=== PATIENT | female | born 1950 | race Caucasian/White ===

== ENCOUNTER 2020-04-12 11:58 | Inpatient (IN) | payer MEDICARE ==
[~2020-04-12] VITALS: Ht 175.3 cm; Wt 59.1 kg
--- NOTE | ~2020-04-12 | EC ---
PATIENT:HAWK QUIJANO DATE OF SERVICE: 04/12/20 SEX: F MEDICAL RECORD: [id number] DATE OF : [birth year] LOCATION:D[facility] AGE OF PATIENT: 70 ADMISSION DATE: 04/12/20 REFERRING PHYSICIAN: INTERPRETING PHYSICIAN: ALLIE PATRICK MD ECHOCARDIOGRAM REPORT ECHO CHARGES 4 ECHO COMPLETE Date: 04/13/20 CLINICAL DIAGNOSIS: CVA ECHOCARDIOGRAPHIC MEASUREMENTS (adult normal given) AC root (d.<3.7cm) 3.4 cm LV Septum d (<1.2 cm> 1.4 cm Valve Excursion 2.0 cm LV Septum (systole) 1.7 cm Left Atria (s.<4.0cm> 4.5 cm LVPW d(<1.2cm) 1.3 cm RV (d.<2.3cm) 2.3 cm LVPW (sytole) 1.7 cm LV diastole(<5.6CM) 3.7 cm MV E-F(>70mm/sec) cm LV systole 2.6 cm LVOT Diameter 2.0 cm MV exc.(>10mm) cm Est.ejection fraction (50-75%) % DOPPLER: LVIT cm/sec A 73.0 cm/sec E 48.0 cm/sec LA cm/sec RVSP 21.0 mmHg LVOT 82.0 cm/sec AOP1/2T m/s Asc. Ao 112 cm/sec RVOT 51.0 cm/sec RA cm/sec PA 76.0 cm/sec AV Gradient Peak 5.0 mmHg AV Mean 2.6 mmHg AV Area 2.3 cm MV Gradient Peak 3.2 mmHg MV Mean 1.1 mmHg MV Area cm COMMENTS: Customs House Broker: Sulema [employer] Curator: 4 Dr. Patrick TAPE# PACS Pericardial Effusion N DATE OF SERVICE: 04/14/2020 PROCEDURE: Transthoracic echocardiogram. FINDINGS: Left ventricle is normal size, normal function with mild LVH. Evidence of diastolic dysfunction. Left atrium is mildly dilated at 4.5 cm, but normal function. Aortic valve is normal. ECHOCARDIOGRAM REPORT [id number] HAWK QUIJANO The mitral valve appears to be functionally normal with trivial mitral regurgitation. Tricuspid valve has trace tricuspid valve regurgitation. The right ventricular systolic pressure is 21 mmHg. The right ventricle is normal size and function. Right atrium is normal size and function. PULMONIC VALVE: Not well visualized. There is trace pulmonic insufficiency. There is no obvious thrombus identified on this evaluation. TRANSINT:[id number] Voice Confirmation ID: [id number] DOCUMENT ID: [id number] ALLIE PATRICK MD CC: [id number] DICTATION DATE: 04/14/20 1837 SYSTEM VALIDATION ENGINEER: 04/15/20 0114 ADM IN [facility] [address] [id number]
[~2020-04-12 11:58] MED LIST: HYDROCODONE-APA1 TAB PO
--- NOTE | 2020-04-12 12:07 | NUR ---
PT REGISTERED PRIOR TO ARRIVING. STILL NOT HERE.
--- NOTE | 2020-04-12 12:25 | NUR ---
PT ACCURATE ARRIVAL TIME IN ED 1214. ARRIVES POV WITH FAMILY.
--- NOTE | 2020-04-12 12:40 | NUR ---
TO CT VIA STRETCHER WITH DESULFURIZER MACHINE
--- NOTE | 2020-04-12 12:40 | NUR ---
FSBS= 102 MG/DL
[2020-04-12 12:41] LABS: CALC OSMOLALITY 271 mosm/kg (275-300); CALCIUM 9.6 mg/dL (8.5-10.1); CARBON DIOXIDE 28.5 mmol/L (21.0-32.0); CHLORIDE - SERUM 102 mmol/L (98-107); CREATININE - SERUM 1.1 mg/dL (0.6-1.3); GLUCOSE 107 mg/dL (74-106); POTASSIUM - SERUM 4.2 mmol/L (3.5-5.1); SODIUM 136 mmol/L (136-145); UREA NITROGEN 13 mg/dL (7-18); eGFR NON AFRICAN AMERICAN 52 mL/min (90-120)
[2020-04-12 12:43] VITALS: BP 152/80
[2020-04-12 12:43] LABS: APTT 26.2 SECONDS (22.8-39.4)
[2020-04-12 12:48] LABS: INR 0.95 (0.85-1.17); PROTIME 12.6 SECONDS (11.6-15.0)
[2020-04-12 12:55] LABS: ALKALINE PHOSPHATASE 70 U/L (30-120); ALT (SGPT) 20 U/L (10-68); BILIRUBIN - TOTAL 0.54 mg/dL (0.2-1.3); CKMB 0.6 U/L (0.0-3.6); CREATINE KINASE 63 UL (21-215); MAGNESIUM - SERUM 2.2 mg/dL (1.8-2.4); PROTEIN - SERUM 7.9 g/dL (6.4-8.2); THYROID STIMULATING HORMONE 2.78 uIU/mL (0.36-3.74)
[2020-04-12 12:56] LABS: TROPONIN-I < 0.017 ng/mL (0.000-0.060)
[2020-04-12 13:32] VITALS: BP 152/84
[2020-04-12 13:44] LABS: BASOPHILS 0.2 % (0-2); HEMATOCRIT 41.1 % (36.0-48.0); HEMOGLOBIN 13.8 g/dL (12-16); IMMATURE GRANULOCYTES 0.2 % (0-5); MCH 28.7 pg (26.0-34.0); MCHC 33.6 g/dL (31.0-37.0); MCV 85.4 fL (80.0-100.0); MONOCYTES 7.6 % (2-11); PLATELET COUNT 192 10x3/uL (130-400); RBC 4.81 10x6/uL (4.00-5.40); RDW 12.9 % (11.5-14.5); WBC 5.2 10x3/uL (4.8-10.8)
--- NOTE | 2020-04-12 14:52 | NUR ---
PT AMB TO BR WITH SBA, NICK WELL, URINE SPEC COLLECTED, LABELED AT BS AND SENT TO LAB
[2020-04-12 15:00] VITALS: BP 184/71
[2020-04-12 15:19] LABS: BILIRUBIN NEGATIVE (NEGATIVE); GLUCOSE NEGATIVE (NEGATIVE); KETONE NEGATIVE (NEGATIVE); NITRITE NEGATIVE (NEGATIVE); UROBILINOGEN NORMAL (NORMAL)
[2020-04-12 15:20] LABS: RED CELLS - URINE 0-5 /hpf (0-5); WHITE CELLS - URINE 25-50 /hpf (NEGATIVE)
[2020-04-12 15:21] LABS: BACTERIA MANY /hpf (NEGATIVE); EPITHELIAL CELLS 0-5 /hpf (0-5)
[2020-04-12 16:00] VITALS: BP 159/79
--- NOTE | 2020-04-12 16:32 | NUR ---
REPORT TO BONG GRAY
--- NOTE | 2020-04-12 16:58 | NUR ---
TO MRI VIA WC WITH COVER MACHINE OPERATOR, CONDITION STABLE THEN TO BE TRANSPORTED TO ROOM #7819
--- NOTE | 2020-04-12 17:30 | NUR ---
TO ROOM 2219 FROM ER. ASSESSMENT PER FLOW SHEET. PATIENT IS NON VERBAL AND CANNOT WRITE WHAT SHE WANTS TO SAY. NET PROGRAMMER ANALYST ARE EQUAL. GAIT IS UNSTEADY, BUT CAN WALK WITH ASSIST. PUPILS ARE EQUAL AND REACTIVE.FALL PREVENTION IN PLACE WITH JES MAT. FAMILY AT BEDSIDE
[2020-04-12 18:01] VITALS: BP 175/74; Ht 175.3 cm; Wt 59.1 kg
--- NOTE | 2020-04-12 19:00 | NUR ---
BEDSIDE REPORT RECEIVED AND CARE OF PT ASSUMED. PT APHASIC WITH ONLY SPEAKING A COUPLE OF WORDS..OTHERWISE ALERT AND ORIENTED. IV TO RIGHT FA SALINE LOCKED.
--- NOTE | 2020-04-12 19:15 | NUR ---
PLACED TELEMETRY AND SCD'S PER ORDER. TELEMETRY READING SR AT 60 AT THIS TIME. GAVE IS AND INSTRUCTED ON USE. RETURN DEMONSTRATION TO 1999 DESPLAYED.
[2020-04-12 20:00] VITALS: BP 148/82
--- NOTE | 2020-04-12 20:12 | NUR ---
GAVE HS MEDICATIONS WITH THCKENED WATER. PT SWALLOWED WITHOUT DIFFICULTY. GAVE APPLESAUCE AND PUDDING FOR HS SNACK. IS AT BEDSIDE.
--- NOTE | 2020-04-12 23:40 | NUR ---
CALLED DR WHATLEY TO REPORT TEST RESULTS AND PT CURRENT ASSESSMENT.
[2020-04-13 04:00] VITALS: BP 126/75
--- NOTE | 2020-04-13 04:56 | NUR ---
PT REMAINS APHASIC WITH LEFT SIDE WEAKNESS. ABLE TO AMBULATE WITH ASSIST TO RESTROOM. IS AT BEDSIDE.
--- NOTE | 2020-04-13 05:16 | NUR ---
ASSISTED PT UP TO USE RESTROOM. AMBULATED WITH MINIMAL ASSISTANCE. POSITIONED BACK IN BED FOR COMFORT AND REPLACED SCD'S. WILL CONTINUE TO MONITOR FOR NEEDS. IS AT BEDSIDE.
[2020-04-13 05:35] LABS: BASOPHILS 0.2 % (0-2); EOSINOPHILS 1.7 % (0-7); HEMATOCRIT 39.7 % (36.0-48.0); HEMOGLOBIN 13.1 g/dL (12-16); IMMATURE GRANULOCYTES 0.2 % (0-5); MCH 28.5 pg (26.0-34.0); MCV 86.5 fL (80.0-100.0); MEAN PLATELET VOLUME 9.5 fL (7.4-10.4); MONOCYTES 8.5 % (2-11); NEUTROPHILS 60.4 % (40-80); PLATELET COUNT 183 10x3/uL (130-400); RBC 4.59 10x6/uL (4.00-5.40); WBC 4.8 10x3/uL (4.8-10.8)
[2020-04-13 05:52] LABS: ANION GAP 10.5 mmol/L (8-16); CALCIUM 9.1 mg/dL (8.5-10.1); CARBON DIOXIDE 28.8 mmol/L (21.0-32.0); CHOL - HDL RATIO 4.2 ratio (2.3-4.1); CREATININE - SERUM 0.9 mg/dL (0.6-1.3); LDL-HDL RATIO 2.8 ratio (1.5-3.5); POTASSIUM - SERUM 4.3 mmol/L (3.5-5.1)
[2020-04-13 08:41] VITALS: BP 137/84
--- NOTE | 2020-04-13 11:43 | NUR ---
I have reviewed this patient and I concur with the Shift Assessment completed by the Licensed Practical Nurse today this shift.
[2020-04-13 12:16] VITALS: BP 115/82
--- NOTE | 2020-04-13 14:01 | NUR ---
PT SITTING UP IN BED, SPOUSE AT BEDSIDE, PER SPOUSE PT ATE A LITTLE BIT OF LUNCH AND ABLE TO DRINK HER THICKENED FLUIDS, PT CONCERNED THAT SPOUSE IS NOT EATING, OFFERED SANDWICH TRAY CAFETERIA IS CLOSED, PT SON CALLED FOR UPDATE, GAVE MUCH INFORMATION I COULD, STATED STILL PENDING DR WHATLEY'S RECOMMENDATIONS ACCORDING TO PRIMARY PLAN OF CARE. NO OTHER NEEDS AT THIS TIME. CONTINUE WITH PLAN OF CARE
--- NOTE | 2020-04-13 15:20 | NUR ---
PT SPOUSE STATED HE NEEDED TO LEAVE TO GET SLEEP AND TORN BETWEEN LEAVING AND MISSING DOCTOR OR GETTING ADEQUATE SLEEP. ENCOURAGED PT SPOUSE TO GO GET REST AND EXPLAINED I WILL GET NUMBER AND HAVE DR CALL HIM IF HE ARRIVES AND PT SPOUSE IS NOT BACK. SPOUSE RELUCTANTLY AGREED. NO NEEDS VOICED FROM PT. CONTINUE WITH PLAN OF CARE
[2020-04-13 16:15] VITALS: BP 139/74
--- NOTE | 2020-04-13 19:00 | NUR ---
BEDSIDE REPORT RECEIVED AND CARE OF PT ASSUMED. PT LYING IN HIGH DEVRIES'S POSITION. IV TO RIGHT FA SALINE LOCKED. TELEMETRY IN PLACE AND READING SR AT THIS ASSESSMENT. WILL MONITOR FOR NEEDS.
[2020-04-13 20:00] VITALS: BP 130/69
--- NOTE | 2020-04-13 20:04 | NUR ---
HS MEDICATIONS GIVEN. WILL CONTINUE TO MONITOR FOR NEEDS.
[2020-04-14] VITALS: BP 113/68
[2020-04-14 04:00] VITALS: BP 113/74
[2020-04-14 05:44] LABS: ALBUMIN 3.6 g/dL (3.4-5.0); ANION GAP 12.1 mmol/L (8-16); BILIRUBIN - TOTAL 0.49 mg/dL (0.2-1.3); CALCIUM 9.2 mg/dL (8.5-10.1); CARBON DIOXIDE 27.7 mmol/L (21.0-32.0); POTASSIUM - SERUM 3.8 mmol/L (3.5-5.1); PROTEIN - SERUM 7.2 g/dL (6.4-8.2)
[2020-04-14 07:08] LABS: BASOPHILS 0.2 % (0-2); EOSINOPHILS 1.1 % (0-7); HEMATOCRIT 40.1 % (36.0-48.0); HEMOGLOBIN 13.4 g/dL (12-16); IMMATURE GRANULOCYTES 0.2 % (0-5); LYMPHOCYTES 23.1 % (15-50); MCH 28.8 pg (26.0-34.0); MCHC 33.4 g/dL (31.0-37.0); MCV 86.2 fL (80.0-100.0); MEAN PLATELET VOLUME 9.9 fL (7.4-10.4); MONOCYTES 8.7 % (2-11); NEUTROPHILS 66.7 % (40-80); PLATELET COUNT 184 10x3/uL (130-400); RBC 4.65 10x6/uL (4.00-5.40); RDW 13.1 % (11.5-14.5); WBC 6.5 10x3/uL (4.8-10.8)
[2020-04-14 08:10] VITALS: BP 123/71
--- NOTE | 2020-04-14 08:36 | NUR ---
PT IS SITTING UP IN BED EATING BREAKFAST WITH SPOUSE AT BEDSIDE. PT STATED SHE IS GOING HOME TODAY, EXPLAINED TO PATIENT WISHES OF DR WHATLEY AND REASONING. PT IS VERY STRONG WILLED AND STATED SHE WOULD RATHER DO THERAPY AT HOME. PT SPEECH IS MORE CLEAR. RIGHT SIDE IS A LOT STRONGER TODAY WELL. SPOKE TO PT DAUGHTER JAIME WHO WAS AN AID AT THE HOSPITAL AND VOICED MY CONCERNS. PT DAUGHTER STATED THAT THEY WERE ABLE TO TAKE CARE OF HER FATHER A FEW YEARS AGO AND THAT THEY WILL BE ABLE TO CARE FOR HER AT HOME AND ALSO MAKE SURE THAT SHE DOES AGGRESSIVE OP THERAPY. EXPRESSED PATIENTS WISHES AND CONCERNS WITH CASE MANAGEMENT AND TOLD CASE MANAGEMENT JESSICA WOODY THAT FAMILY WOULD LIKE TO SEE HER. NO OTHER NEEDS VOICED AT THIS TIME. CONTINUE WITH PLAN OF CARE
--- NOTE | 2020-04-14 12:16 | MORECARE ---
CASE MANAGEMENT DISCHARGE SUMMARY PATIENT: HAWK QUIJANO UNIT: [id number] ADM DATE: 04/12/20 AGE: 70 : 51 SEX: F ROOM/BED: D.2219 AUTHOR: KISHOR HARMAN PHYSICIAN: REFERRING PHYSICIAN: KAVEH MCCANN MD DATE OF SERVICE: 04/14/20 Discharge Plan Patient Name: HAWK QUIJANO [facility] [facility] 1950 Planned Disposition: Home or Self Care Anticipated Discharge Date: Discharge Date: Expected LOS: Initial Reviewer: [email or web address] Initial Review Date: 04/12/2020 Generated: 04/14/20 1:15 pm DCPIA - Discharge Planning Initial Assessment Updated by [email or web address]: Annie Dale on 04/14/20 12:14 pm * Is the patient Alert and Oriented? Yes * How many steps to enter\exit or inside your home? * PCP NONE ([facility] REFERRED THEM TO [facility]) * Pharmacy [facility] * Preadmission Environment Home with Family * ADLs Independent * Equipment None * List name and contact numbers for known caregivers / representatives who currently or will assist patient after discharge: MALI QUIJANO [phone] * Verbal permission to speak to the caregivers and representatives has been obtained from the patient. N/A * Community resources currently utilized None * Additional services required to return to the preadmission environment? Yes * Can the patient safely return to the preadmission environment? Yes * Has this patient been hospitalized within the prior 30 days at any hospital? No Patient Name: HAWK QUIJANO Page [id number] at 1216 All edits/amendments must be made on the electronic document DICTATION DATE: 04/14/20 1215 OIL AND GAS WELL TREATMENT OPERATOR: ANTONIO 04/14/20 1215 RPT#: [id number] DC DATE: STATUS: ADM IN [address] [place] [address] END OF REPORT
[2020-04-14 12:19] VITALS: BP 146/82
--- NOTE | 2020-04-14 12:23 | MORECARE ---
CASE MANAGEMENT DISCHARGE SUMMARY PATIENT: HAWK QUIJANO UNIT: [id number] ADM DATE: 04/12/20 AGE: 70 : 51 SEX: F ROOM/BED: D.2219 AUTHOR: GHAZALDOC PHYSICIAN: REFERRING PHYSICIAN: KAVEH MCCANN MD DATE OF SERVICE: 04/14/20 Discharge Plan Patient Name: HAWK QUIJANO Facility: [facility]:[place] : 1950 Planned Disposition: Home or Self Care Anticipated Discharge Date: Discharge Date: Expected LOS: Initial Reviewer: [email or web address] Initial Review Date: 04/12/2020 Generated: 04/14/20 1:22 pm Comments DCP- Discharge Planning Updated by [email or web address]: Annie Dale on 04/14/20 11:[address] Patient Name: HAWK QUIJANO Admission Status: ER Accout number: [id number] Admission Date: 04-12-2020 : 1950 Admission Diagnosis: Attending: KAVEH VOGT Current LOS: 2 Anticipated DC Date: Planned Disposition: Home or Self Care Primary Insurance: MEDICARE A & B Discharge Planning Comments: CM met with patient to complete initial dc planning assessment. CM educated patient on the CM role and verbal consent given by patient to complete assessment. Patient lives at home with her spouse where she was independent with her care. At discharge patient plans to return home and feels this is a safe discharge. CM discussed availability of home health, rehab services, and medical equipment. She does not think that she needs any DME. She is very tearful speaking with me about therapy. She would like to go home and do outpatient therapy, if that is possible. She will need Speech at least. IMM served and explained. Her said that he can bring her to and from and they would like to do it here @ [facility]. Patient denied known discharge needs at this time. CM will continue to follow and will assist as needed with dc plans/needs. Religious Ritual Slaughterer: Annie Dale DCPIA - Discharge Planning Initial Assessment Updated by [email or web address]: Annie Dale on 04/14/20 12:14 pm * Is the patient Alert and Oriented? Yes * How many steps to enter\exit or inside your home? * PCP NONE ([facility]) * Pharmacy [facility] * Preadmission Environment Home with Family * ADLs Independent * Equipment None * List name and contact numbers for known caregivers / representatives who currently or will assist patient after discharge: MALI QUIJANO [phone] * Verbal permission to speak to the caregivers and representatives has been obtained from the patient. N/A * Community resources currently utilized None * Additional services required to return to the preadmission environment? Yes * Can the patient safely return to the preadmission environment? Yes * Has this patient been hospitalized within the prior 30 days at any hospital? No Coverage Notice Reviewer: [id number] Blake Dale Notice Issued Date-Time: 04/14/2020 12:00 Notice Type: IM Discharge Notice Notice Delivered To: Patient Relationship to Patient: Breaker Up Machine Operator Name: Delivery Method: HAND - Hand Delivered Kathrine Days: Prior Verbal Notification: Recipient Understood Notice: Yes Recipient Signature: Yes Med Rec Note Co-signed by Attending: Coverage Notice Comment: imm served and explained Last DP export: 04/14/20 11:16 a Patient Name: HAWK QUIJANO Page [phone] at 1223 All edits/amendments must be made on the electronic document DICTATION DATE: 04/14/201221 VACCINE SPECIALIST: ANTONIO 04/14/201221 RPT#: [id number] DC DATE: STATUS: ADM IN [facility] [address] [place] [address] END OF REPORT
--- NOTE | 2020-04-14 15:05 | NUR ---
[facility] NO S/SX OF DISTRESS, PT IS EATING SONIC AND STATES SHE IS GOING TO HAVE A PEDICURE. NO OTHER NEEDS VOICED, CL IN REACH, CONTINUE WITH PLAN OF CARE
[2020-04-14 16:44] VITALS: BP 137/79
--- NOTE | 2020-04-14 16:56 | NUR ---
I have reviewed this patient and I concur with the Shift Assessment completed by the Licensed Practical Nurse today this shift.
--- NOTE | 2020-04-14 19:00 | NUR ---
BEDSIDE REPORT RECEIVED AND CARE OF PT ASSUMED. PT AMBULATING IN THE HALLWAY WITH DAUGHTER AT THIS TIME. WILL MONITOR FOR NEEDS.
[2020-04-14 20:00] VITALS: BP 106/71
--- NOTE | 2020-04-14 20:27 | NUR ---
HS MEDICATIONS GIVEN WITH THICKENED WATER. WILL CONTINUE TO MONITOR FOR NEEDS.
[2020-04-15] VITALS: BP 117/77
[2020-04-15 04:00] VITALS: BP 129/73
[2020-04-15 04:50] LABS: BASOPHILS 0.2 % (0-2); EOSINOPHILS 1.8 % (0-7); HEMATOCRIT 40.2 % (36.0-48.0); HEMOGLOBIN 13.2 g/dL (12-16); IMMATURE GRANULOCYTES 0.2 % (0-5); LYMPHOCYTES 28.8 % (15-50); MCH 28.4 pg (26.0-34.0); MCHC 32.8 g/dL (31.0-37.0); MCV 86.6 fL (80.0-100.0); MEAN PLATELET VOLUME 9.7 fL (7.4-10.4); MONOCYTES 6.5 % (2-11); NEUTROPHILS 62.5 % (40-80); PLATELET COUNT 188 10x3/uL (130-400); RBC 4.64 10x6/uL (4.00-5.40); RDW 13.1 % (11.5-14.5); WBC 5.1 10x3/uL (4.8-10.8)
[2020-04-15 05:07] LABS: ALBUMIN 3.6 g/dL (3.4-5.0); ANION GAP 10.1 mmol/L (8-16); BILIRUBIN - TOTAL 0.37 mg/dL (0.2-1.3); CARBON DIOXIDE 29.8 mmol/L (21.0-32.0); CREATININE - SERUM 1.1 mg/dL (0.6-1.3); POTASSIUM - SERUM 3.9 mmol/L (3.5-5.1); PROTEIN - SERUM 7.3 g/dL (6.4-8.2)
[2020-04-15 08:18] VITALS: BP 134/74
--- NOTE | 2020-04-15 08:45 | NUR ---
PT SITTING UP IN BED EATING BREAKFAST. RESP EVEN AND UNLABORED. PT SPEECH CLEAR FOR THE MOST PART, @ TIMES IT DOES BECOME GARBLED WHEN BECOMES EXCITED OR EAGER TO TELL SOMETHING. IV TO RIGHT FOREARM SALINE LOC'D. SITE WITHOUT REDNESS OR EDEMA. DENIES PAIN AT THIS TIME. DENIES FURTHER NEEDS AT THIS TIME. CL WITHIN REACH. ENCOURAGED TO CALL WITH NEEDS. CONTINUE POC
[2020-04-15 12:34] VITALS: BP 126/99
--- NOTE | 2020-04-15 14:00 | NUR ---
PT RESTING IN BED. NO ACUTE DISTRESS NOTED AT THIS TIME. PT DOES VOICE WISHES FOR DISCHARGE, BUT VOICES CONCERN DUE TO MATERIAL HANDLING SUPERVISOR WANTING SPEECH THERAPY ASSESSMENT BEFORE DISCHARGE. DISCUSSED POSSIBLE SILENT ASPIRATION AND COMPLICATIONS REGARDING ANY ASPIRATION AND NOT BEING AWARE OF ASPIRATING. PT DOES VOICE UNDERSTANDING AND MORE WILLING FOR ASSESSMENT AT THIS TIME.
[2020-04-15] MEDS ORDERED: PLAVIX75 MG PO (14:36)
[2020-04-15] MEDS ORDERED: LIPITOR20 MG PO (14:36)
--- NOTE | 2020-04-15 14:36 | MORECARE ---
CASE MANAGEMENT DISCHARGE SUMMARY PATIENT: HAWK QUIJANO UNIT: [id number] ADM DATE: 04/12/20 AGE: 70 : 51 SEX: F ROOM/BED: D.2219 AUTHOR: GHAZAL,DOC PHYSICIAN: REFERRING PHYSICIAN: KAVEH MCCANN MD DATE OF SERVICE: 04/15/20 Discharge Plan Patient Name: HAWK QUIJANO Facility: [facility]:[place] : 1950 Planned Disposition: Home or Self Care Anticipated Discharge Date: Discharge Date: Expected LOS: Initial Reviewer: [email or web address] Initial Review Date: 04/12/2020 Generated: 04/15/20 3:36 pm Comments DCP- Discharge Planning Updated by [id number]: Annie Dale on 04/15/20 1:[address] PATIENT WILL BE DISCHARGING HOME WITH HER SPOUSE SHE HAS BEEN SET UP FOR OP SPEECH FOR April @ 1400, I SPOKE WITH KYLE I HAVE GIVEN THE PATIENT A COPY OF THE PERSCRIPTION CM TO FOLLOW AND ASSIST NEEDED DCP- Discharge Planning Updated by [email or web address]: Annie Dale on 04/14/20 11:[address] Patient Name: HAWK QUIJANO Admission Status: ER Accout number: [id number] Admission Date: 04-12-2020 : 1950 Admission Diagnosis: Attending: KAVHE VOGT Current LOS: 2 Anticipated DC Date: Planned Disposition: Home or Self Care Primary Insurance: MEDICARE A & B Discharge Planning Comments: CM met with patient to complete initial dc planning assessment. CM educated patient on the CM role and verbal consent given by patient to complete assessment. Patient lives at home with her spouse where she was independent with her care. At discharge patient plans to return home and feels this is a safe discharge. CM discussed availability of home health, rehab services, and medical equipment. She does not think that she needs any DME. She is very tearful speaking with me about therapy. She would like to go home and do outpatient therapy, if that is possible. She will need Speech at least. IMM served and explained. Her said that he can bring her to and from and they would like to do it here @ [facility]. Patient denied known discharge needs at this time. CM will continue to follow and will assist as needed with dc plans/needs. Mooner: Annie Dale DCPIA - Discharge Planning Initial Assessment Updated by [email or web address]: Annie Dale on 04/14/20 12:14 pm * Is the patient Alert and Oriented? Yes * How many steps to enter\exit or inside your home? * PCP NONE ([facility] REFERR[facility] TO [facility]) * Pharmacy [facility] * Preadmission Environment Home with Family * ADLs Independent * Equipment None * List name and contact numbers for known caregivers / representatives who currently or will assist patient after discharge: MALI QUIJANO [phone] * Verbal permission to speak to the caregivers and representatives has been obtained from the patient. N/A * Community resources currently utilized None * Additional services required to return to the preadmission environment? Yes * Can the patient safely return to the preadmission environment? Yes * Has this patient been hospitalized within the prior 30 days at any hospital? No Coverage Notice Reviewer: [email or web address] - Annie Dlae Notice Issued Date-Time: 04/14/2020 12:00 Notice Type: IM Discharge Notice Notice Delivered To: Patient Relationship to Patient: Director Of Clinical Services Name: Delivery Method: HAND - Hand Delivered Kathrine Days: Prior Verbal Notification: Recipient Understood Notice: Yes Recipient Signature: Yes Med Rec Note Co-signed by Attending: Coverage Notice Comment: imm served and explained Last DP export: 04/14/20 11:23 a Patient Name: HAWK QUIJANO Page [phone] at 1436 All edits/amendments must be made on the electronic document DICTATION DATE: 04/15/20 1436 GERIATRICIAN: ANTONIO 04/15/20 1436 RPT#: [id number] DC DATE: STATUS: ADM IN [facility] [address] [place] [address] END OF REPORT
[2020-04-15] MEDS ORDERED: ASPIRIN325 MG PO (14:37)
[2020-04-15] MEDS ORDERED: BACTRIM 400-801 TAB PO (14:47)
--- NOTE | 2020-04-16 09:07 | MORECARE ---
CASE MANAGEMENT DISCHARGE SUMMARY PATIENT: HAWK QUIJANO UNIT: [id number] ADM DATE: 04/12/20 AGE: 70 : 51 SEX: F ROOM/BED: D.2219 AUTHOR: KISHOR HARMAN PHYSICIAN: REFERRING PHYSICIAN: KAVEH MCCANN MD DATE OF SERVICE: 04/16/20 Discharge Plan Patient Name: HAWK QUIJANO Facility: [facility]:[place] : 1950 Planned Disposition: Home or Self Care Anticipated Discharge Date: Discharge Date: 04/15/2020 Expected LOS: Initial Reviewer: [email or web address] Initial Review Date: 04/12/2020 Generated: 04/16/20 10:07 am Comments DCP- Discharge Planning Updated by [email or web address]: Annie Dale on 04/15/20 1:[address] PATIENT WILL BE DISCHARGING HOME WITH HER SPOUSE SHE HAS BEEN SET UP FOR OP SPEECH FOR April @ 1400, I SPOKE WITH KYLE I HAVE GIVEN THE PATIENT A COPY OF THE PERSCRIPTION CM TO FOLLOW AND ASSIST NEEDED DCP- Discharge Planning Updated by [email or web address]: Annie Dale on 04/14/20 11:[address] Patient Name: HAWK QUIJANO Admission Status: ER Accout number: [id number] Admission Date: 04-12-2020 : 1950 Admission Diagnosis: Attending: KAVEH VOGT Current LOS: 2 Anticipated DC Date: Planned Disposition: Home or Self Care Primary Insurance: MEDICARE A & B Discharge Planning Comments: CM met with patient to complete initial dc planning assessment. CM educated patient on the CM role and verbal consent given by patient to complete assessment. Patient lives at home with her spouse where she was independent with her care. At discharge patient plans to return home and feels this is a safe discharge. CM discussed availability of home health, rehab services, and medical equipment. She does not think that she needs any DME. She is very tearful speaking with me about therapy. She would like to go home and do outpatient therapy, if that is possible. She will need Speech at least. IMM served and explained. Her said that he can bring her to and from and they would like to do it here @ [facility]. Patient denied known discharge needs at this time. CM will continue to follow and will assist as needed with dc plans/needs. Pararescue Craftsman: Annie Dale DCPIA - Discharge Planning Initial Assessment Updated by [email or web address]: Annie Dale on 04/14/20 12:14 pm * Is the patient Alert and Oriented? Yes * How many steps to enter\exit or inside your home? * [facility] * [facility] * Preadmission Environment Home with Family * ADLs Independent * Equipment None * List name and contact numbers for known caregivers / representatives who currently or will assist patient after discharge: MALI QUIJANO [phone] * Verbal permission to speak to the caregivers and representatives has been obtained from the patient. N/A * Community resources currently utilized None * Additional services required to return to the preadmission environment? Yes * Can the patient safely return to the preadmission environment? Yes * Has this patient been hospitalized within the prior 30 days at any hospital? No Coverage Notice Reviewer: [id number] - Annie Dale Notice Issued Date-Time: 04/14/2020 12:00 Notice Type: IM Discharge Notice Notice Delivered To: Patient Relationship to Patient: Grinder Set Up Operator Internal Name: Delivery Method: HAND - Hand Delivered Kathrine Days: Prior Verbal Notification: Recipient Understood Notice: Yes Recipient Signature: Yes Med Rec Note Co-signed by Attending: Coverage Notice Comment: imm served and explained Last DP export: 04/15/20 1:36 pm Patient Name: HAWK QUIJANO Page [id number] at 0907 All edits/amendments must be made on the electronic document DICTATION DATE: 04/16/20906 GAS METER REPAIR SUPERVISOR: ANTONIO 04/16/20906 RPT#: [id number] DC DATE:04/15/20 STATUS: DIS IN [facility] [address] [place] [address] END OF REPORT
== END 2020-04-15 15:35 | disposition home or self-care (01) | DRG 64 ==
LOC: D.ER 11:58 → D.MS 16:09
PROVIDERS: Family Medicine; ADMIT Family Medicine; ATTEND Family Medicine
DX: I63.512 Cerebral infarction due to unspecified occlusion or stenosis of left middle cerebral artery (principal); R40.2213 Coma scale, best verbal response, none, at hospital admission; G81.94 Hemiplegia, unspecified affecting left nondominant side; I63.89 Other cerebral infarction; R40.2363 Coma scale, best motor response, obeys commands, at hospital admission; R40.2143 Coma scale, eyes open, spontaneous, at hospital admission